=== PATIENT | female | born 1965 | race Caucasian/White ===

== ENCOUNTER 2018-02-20 21:46 | Emergency (ER) | payer BC ==
[2018-02-20 22:01] VITALS: BP 146/84
[2018-02-20] MEDS ORDERED: HYDROcodone/ACETAMIN 5-325 MG* 1 TAB PO ONE (22:01)
[2018-02-20] MEDS ORDERED: Ondansetron ODT TAB* 4 MG PO ONE (22:05)
[2018-02-20] MEDS ORDERED: Ondansetron ODT TAB* 4 MG ONE (22:06)
--- NOTE | 2018-02-20 22:06 | UC ---
Complaint Female HPI - HPI Summary HPI Summary: Complains of increased urinary frequency, increased urinary urge with mild sensation of pelvic pressure starting last night, with symptoms worsening today , AND sudden onset left flank pain while waiting here in waiting room. Prior history of kidney stones, states same presentation last time with urinary symptoms and sudden onset kidney pain. Denies fever, cough, sore throat, CP, SOB, N/V/D, abdominal pain, lower back pain, change in BM. Medical history is none. - History Of Current Complaint Stated Complaint: BURNING URINATION Time Seen by Provider: 02/20/18 21:52 Hx Obtained From: Patient Onset/Duration: Gradual Onset, Lasting Hours Timing: Constant Severity Initially: Mild Severity Currently: Severe Pain Scale Used: 0-10 Numeric Character: Sharp - Allergies/Home Medications Allergies/Adverse Reactions: Allergies Allergy/AdvReac Type Severity Reaction Status Date / Time No Known Allergies Allergy Verified 02/20/18 22:01 Home Medications: Home Medications Turkish Herbs 02/20/18 [History] Review of Systems Constitutional: Negative Skin: Negative Eyes: Negative ENT: Negative Respiratory: Negative Cardiovascular: Negative Gastrointestinal: Negative Genitourinary: Frequency, Urgency Motor: Negative Neurovascular: Negative Musculoskeletal: Negative Neurological: Negative Psychological: Negative Is Patient Immunocompromised?: No All Other Systems Reviewed And Are Negative: Yes Physical Exam Triage Information Reviewed: Yes Vital Signs Reviewed: Yes Eye Exam: Normal ENT Exam: Normal Neck exam: Normal Respiratory Exam: Normal Cardiovascular Exam: Normal Abdomen Description: Positive: Nontender, CVA Tenderness (L) Musculoskeletal Exam: Normal Neurological Exam: Normal Psychological Exam: Normal Skin Exam: Normal Complaint Female Dx - Course Course Of Treatment: Due to extremity of pain and hx, have advised patient she needs to go to the ED for better evaluation and management of her symptoms. Patient vital signs stable. patient originally wanted to have her friend drive her to the ED and was given hydrocodone 5mg by mouth for pain. Patient then decided she wanted to go by ambulance. IV access was placed and morphine 4mg IV given. transferred by ambulance to [facility] [place] ED - Differential Dx/Diagnosis Provider Diagnoses: Flank pain. Dysuria - Physician Notifications Discussed Patient Care With: Destinee Stein - gave case details to ED provider Time Discussed With Above Provider: 22:20 Discharge - Sign-Out/Discharge Documenting (check all that apply): Discharge/Admit/Transfer - Discharge Plan Condition: Stable Disposition: TRANS HIGHER LVL OF CARE FAC Referrals: Lola Sosa MD [Primary Care Provider] - - Billing Disposition and Condition Condition: STABLE Disposition: EMTALA
[2018-02-20] MEDS ORDERED: Morphine VIAL* 10 MG/ML 1 ML VIAL IV ONE (22:26)
== END 2018-02-20 22:44 | disposition short-term general hospital (02) ==
LOC: UCEAST 21:46
DX: M54.5 Low back pain (principal); R30.0 Dysuria; Z87.442 Personal history of urinary calculi
CPT/HCPCS: 99203; A9270-GY; G0463; J2270

== ENCOUNTER 2018-02-20 23:06 | Emergency (ER) | payer BC ==
[2018-02-20] MEDS ORDERED: Ketorolac INJ* 30 MG/ML 1 ML VIAL IV PUSH ONE (23:23)
[2018-02-20] MEDS ORDERED: Morphine VIAL* 4 MG/ML VIAL (1 ml vial) IV ONE (23:24)
[2018-02-20] MEDS ORDERED: NS 0.9% 1000 ML* 1,000 ML IV ONE (23:24)
[2018-02-21 00:40] LABS: ABS Basophils 0 10^3/ul (0-0.2); ABS Eosinophils 0.1 10^3/ul (0-0.6); ABS Lymphocytes 1.1 10^3/ul (1.0-4.8); ABS Monocytes 0.4 10^3/ul (0-0.8); ABS Neutrophils 7.7 10^3/ul (1.5-7.7); ABS Nucleated RBC 0 10^3/ul; Eosinophil % 0.7 % (0-6); Hematocrit 37 % (35-47); Hemoglobin 12.6 g/dl (12.0-16.0); Lymphocyte % 11.9 % (25-47); Mean Corpuscular HGB Conc 34 g/dl (31-36); Mean Corpuscular Hemoglobin 32 pg (27-31); Mean Corpuscular Volume 93 fL (80-97); Mean Platelet Volume 7.8 um3 (7.4-10.4); Nucleated Red Blood Cells % 0; Platelet Count 193 10^3/ul (150-450); Red Blood Count 3.99 10^6/ul (4.0-5.4); Red Cell Distribution Width 13 % (10.5-15); White Blood Count 9.4 10^3/ul (3.5-10.8)
[2018-02-21 00:59] LABS: EGFR Non-African American 56.1 (>60)
--- NOTE | 2018-02-21 01:32 | ED ---
GI/ HPI - HPI Summary HPI Summary: 52-year-old female presents with left-sided flank pain for the past couple hours. She admits to urgency frequency. She denies any hematuria. She states this feels similar to when she has kidney stone the past. States pain radiates from left lower quadrant. She was given some morphine en route and it seemed to help. She states she is nauseous and has been vomiting. She denies any abnormal vaginal discharge. She denies any diarrhea or constipation. She denies any fevers. She denies any chest pain or shortness of breath. She has had a prior. She has no medical conditions. - History of Current Complaint Chief Complaint: EDFlankPain Time Seen by Provider: 02/20/18 23:10 Stated Complaint: RT FLANK PAIN Hx Last Menstrual Period: 02/09/2018 Pain Intensity: 8 - Allergy/Home Medications Allergies/Adverse Reactions: Allergies Allergy/AdvReac Type Severity Reaction Status Date / Time No Known Allergies Allergy Verified 02/20/18 22:01 PMH/Surg Hx/FS Hx/Imm Hx Endocrine/Hematology History: Denies: Hx Anticoagulant Therapy Cardiovascular History: Denies: Hx Myocardial Infarction - Cancer History Hx Chemotherapy: No Hx Radiation Therapy: No - Surgical History Surgery Procedure, Year, and Place: c section Infectious Disease History: No Infectious Disease History: Denies: Traveled Outside the [place] in Last 30 Days - Family History Known Family History: Positive: Hypertension - Social History Alcohol Use: Rare Substance Use Type: Reports: None Smoking Status (MU): Never Smoked Tobacco Review of Systems Negative: Fever Negative: Chest Pain Negative: Shortness Of Breath Positive: Vomiting, Nausea. Negative: Abdominal Pain, Diarrhea Positive: flank pain All Other Systems Reviewed And Are Negative: Yes Physical Exam Triage Information Reviewed: Yes Vital Signs On Initial Exam: Initial Vitals Temp Pulse Resp BP Pulse Ox 98.2 F 69 14 120/76 99 02/20/18 23:07 02/20/18 23:07 02/20/18 23:07 02/20/18 23:07 02/20/18 23:07 Vital Signs Reviewed: Yes Appearance: Positive: Well-Appearing Skin: Positive: Warm, Dry Head/Face: Positive: Normal Head/Face Inspection Eyes: Positive: Normal, Conjunctiva Clear Respiratory/Lung Sounds: Positive: Clear to Auscultation, Breath Sounds Present Cardiovascular: Positive: Normal, RRR Abdomen Description: Positive: Soft, CVA Tenderness (L), Other: - tenderness LLQ. Negative: CVA Tenderness (R) Bowel Sounds: Positive: Present Musculoskeletal: Positive: Normal Neurological: Positive: Normal Psychiatric: Positive: Normal Diagnostics - Vital Signs Vital Signs Temp Pulse Resp BP Pulse Ox 02/21/18 00:03 20 02/20/18 23:07 98.2 F 69 14 120/76 99 - Laboratory Lab Results: Lab Results 02/21/18 02/21/18 Range/Units 00:34 00:34 WBC 9.4 (3.5-10.8) 10^3/ul RBC 3.99 L (4.0-5.4) 10^6/ul Hgb 12.6 (12.0-16.0) g/dl Hct 37 (35-47) % MCV 93 (80-97) fL MCH 32 H (27-31) pg MCHC 34 (31-36) g/dl RDW 13 (10.5-15) % Plt Count 193 (150-450) 10^3/ul MPV 7.8 (7.4-10.4) um3 Neut % (Auto) 82.4 (38-83) % Lymph % (Auto) 11.9 L (25-47) % [place] % (Auto) 4.6 (0-7) % Eos % (Auto) 0.7 (0-6) % Baso % (Auto) 0.4 (0-2) % Absolute Neuts (auto) 7.7 (1.5-7.7) 10^3/ul Absolute Lymphs (auto) 1.1 (1.0-4.8) 10^3/ul Absolute Monos (auto) 0.4 (0-0.8) 10^3/ul Absolute Eos (auto) 0.1 (0-0.6) 10^3/ul Absolute Basos (auto) 0 (0-0.2) 10^3/ul Absolute Nucleated RBC 0 10^3/ul Nucleated RBC % 0 Sodium 137 L (139-145) mmol/L Potassium 3.5 (3.5-5.0) mmol/L Chloride 104 (101-111) mmol/L Carbon Dioxide 23 (22-32) mmol/L Anion Gap 10 (2-11) mmol/L BUN 19 (6-24) mg/dL Creatinine 1.04 H (0.51-0.95) mg/dL Est GFR ( Amer) 72.1 (>60) Est GFR (Non-Af Amer) 56.1 (>60) BUN/Creatinine Ratio 18.3 (8-20) Glucose 138 H (70-100) mg/dL Calcium 8.7 (8.6-10.3) mg/dL Total Bilirubin 0.40 (0.2-1.0) mg/dL AST 17 (13-39) U/L ALT 16 (7-52) U/L Alkaline Phosphatase 37 (34-104) U/L C-Reactive Protein 1.07 (< 5.00) mg/L Total Protein 6.1 L (6.4-8.9) g/dL Albumin 3.5 (3.2-5.2) g/dL Globulin 2.6 (2-4) g/dL Albumin/Globulin Ratio 1.3 (1-3) Lipase 12 (11.0-82.0) U/L Beta HCG, Quant 1.02 mIU/mL Result Diagrams: 02/21/18 00:34 02/21/18 00:34 Lab Statement: Any lab studies that have been ordered have been reviewed, and results considered in the medical decision making process. - CT abd CT Interpretation: Positive (See Comments) - 3 mm stone at the left UVJ causing moderate hydronephrosis CT Interpretation Completed By: Marie BARRIENTOS Course/Dx - Course Course Of Treatment: 52-year-old female presents with left-sided flank pain for the past couple hours. She admits to urgency frequency. She denies any hematuria. She states this feels similar to when she has kidney stone the past. States pain radiates from left lower quadrant. She was given some morphine en route and it seemed to help. She states she is nauseous and has been vomiting. She denies any abnormal vaginal discharge. She denies any diarrhea or constipation. She denies any fevers. She denies any chest pain or shortness of breath. She has had a prior. She has no medical conditions. On exam has tenderness left flank and left lower quadrant. Laboratories within normal limits. CT shows a 3 mm stone at the UVJ. Discuss CT results patient. Urine no infection. Patient states that she had follow-up for hypodense lesion on the right liver. Will follow up with urology about kidney stone. Patient understands agrees with plan. - Diagnoses Differential Diagnoses - Female: Pyelonephritis, Urinary Tract Infection, Ureteral Calculi Provider Diagnoses: Urethral stone Discharge - Sign-Out/Discharge Documenting (check all that apply): Discharge/Admit/Transfer - Discharge Plan Condition: Good Disposition: HOME Prescriptions: Ondansetron ODT TAB* [Zofran 4 MG Odt TAB*] 4 mg PO Q6H PRN #12 tab.odt PRN Reason: Nausea oxyCODONE/Acetamin 5/325 MG* [Percocet 5/325 TAB*] 1 tab PO Q6H PRN #12 tab MDD 4 PRN Reason: Pain Tamsulosin CAP* [Flomax CAP*] 0.4 mg PO DAILY #7 cap Patient Education Materials: Ureteral Stones (ED) Referrals: Mynor Caldwell MD [Medical Doctor] - Lola Sosa MD [Primary Care Provider] - Additional Instructions: Take ibuprofen every 6 hours and narcotic as needed every 6 hours Take Zofran every 6 hours for nausea as needed Take Flomax daily starting tomorrow, first dose given in ED until stone expelled , make sure stand up slowly Follow up with urology, call office tomorrow for appointment Return to ED if unable to manage pain at home, develop fever, or any new or worsening symptoms - Billing Disposition and Condition Condition: GOOD Disposition: HOME
[2018-02-21] MEDS ORDERED: O ndansetron ODT 4MG 2TAB PRPK 4 MG PAK PO ONE (01:47)
[2018-02-21] MEDS ORDERED: Tamsulosin CAP* 0.4 MG PO ONE (01:57)
[2018-02-21 02:16] LABS: Urine Appearance Turbid; Urine Blood Negative (Negative); Urine Ketones 2+ (Negative); Urine Protein Negative (Negative); Urine Specific Gravity 1.016 (1.010-1.030); Urine Urobilinogen Negative (Negative)
[2018-02-21 02:25] LABS: Urine Color Yellow
[2018-02-21 03:04] VITALS: BP 124/79
--- NOTE | 2018-02-21 07:37 | RAD ---
CLINICAL HISTORY: Left flank pain COMPARISON: None TECHNIQUE: Noncontrast CT examination of the abdomen and pelvis from the lung bases through the initial tuberosities. FINDINGS: VISUALIZED LUNG BASES: The visualized lung bases are grossly clear. There is no pleural effusion. ABDOMEN AND PELVIS: Evaluation of the solid organs and vasculature is limited without intravenous contrast. Fluid density cysts are noted in the right lobe of the liver. The liver is otherwise homogenous in attenuation. The spleen, pancreas and adrenal glands are grossly normal in appearance. The gallbladder is normal. In the lower pole collecting system of the right kidney there is a 4 mm calcification. There is no right-sided hydronephrosis. There is moderate left-sided hydronephrosis. At the left ureterovesical junction there is a 4 mm calcification. The small and large bowel are not distended. In the right lower quadrant the appendix is identified measuring 5 mm in diameter. There is hyperattenuating material in the distal tip of the appendix but no periappendiceal inflammatory change. There is no gross retroperitoneal or mesenteric lymphadenopathy. At the right pelvis there is a 2 cm fluid density cyst which could be an ovarian follicle. The abdominal aorta and iliac arteries are normal in course and diameter. There are no sinister bone lesions. IMPRESSION: 1. At the left ureterovesical junction there is a 4 mm calcification with moderate ipsilateral hydronephrosis. 2. In the right hemipelvis there is a 2 cm fluid density structure that could be an ovarian follicle in a woman who has not undergone menopause. Please correlate to the patient's menstrual status.
== END 2018-02-21 03:00 | disposition home or self-care (01) ==
LOC: ED 23:06
DX: N20.1 Calculus of ureter (principal); R10.84 Generalized abdominal pain; R11.2 Nausea with vomiting, unspecified
CPT/HCPCS: 36415; 74176; 80053; 81003; 83690; 84702; 85025; 86140; 99284; A9270-GY; J1885; J2270

== ENCOUNTER 2018-02-23 21:26 | Observation (INO) | payer BC ==
[2018-02-23] MEDS ORDERED: NS 0.9% 1000 ML* 1,000 ML IV ONE (22:04)
[2018-02-23] MEDS ORDERED: Ketorolac INJ* 30 MG/ML 1 ML VIAL IV PUSH ONE (22:04)
[2018-02-23] MEDS ORDERED: Metoclopramide IV* 5 MG/ML 2 ML VIAL IV SLOW PU ONE (22:04)
[2018-02-23 22:41] LABS: ABS Basophils 0 10^3/ul (0-0.2); ABS Eosinophils 0.1 10^3/ul (0-0.6); ABS Lymphocytes 1.3 10^3/ul (1.0-4.8); ABS Monocytes 0.5 10^3/ul (0-0.8); ABS Neutrophils 4.7 10^3/ul (1.5-7.7); ABS Nucleated RBC 0 10^3/ul; Eosinophil % 1.9 % (0-6); Hematocrit 36 % (35-47); Hemoglobin 12.2 g/dl (12.0-16.0); Lymphocyte % 19.1 % (25-47); Mean Corpuscular HGB Conc 34 g/dl (31-36); Mean Corpuscular Hemoglobin 32 pg (27-31); Mean Corpuscular Volume 92 fL (80-97); Nucleated Red Blood Cells % 0.1; Platelet Count 172 10^3/ul (150-450); Red Blood Count 3.87 10^6/ul (4.0-5.4); Red Cell Distribution Width 13 % (10.5-15); White Blood Count 6.7 10^3/ul (3.5-10.8)
[2018-02-23 22:49] LABS: INR 0.98 (0.77-1.02)
[2018-02-23 23:27] LABS: Urine Appearance Clear; Urine Blood 3+ (Negative); Urine Color Yellow; Urine Ketones 1+ (Negative); Urine Protein Negative (Negative); Urine Specific Gravity 1.008 (1.010-1.030); Urine Urobilinogen Negative (Negative)
[2018-02-23] MEDS ORDERED: Levofloxacin 500 MG IVPREMIX(* 500 MG/100 ML BAG IVPB ONE (23:38)
[2018-02-23] MEDS ORDERED: Tamsulosin CAP* 0.4 MG PO ONE (23:49)
[2018-02-23] MEDS ORDERED: Magnesium CITRATE* 300 ML BTL PO ONE (23:56)
[2018-02-23] MEDS ORDERED: Bisacodyl SUPP* 10 MG SUPP PR ONE (23:56)
[2018-02-24] MEDS ORDERED: Docusate CAP* 100 MG PO PRN (00:19)
[2018-02-24] MEDS ORDERED: Senna TAB PO PRN (00:19)
[2018-02-24] MEDS ORDERED: Ondansetron INJ* 2 MG/ML VIAL IV PRN ×2 (00:19→07:40)
[2018-02-24] MEDS ORDERED: Morphine VIAL* 4 MG/ML VIAL (1 ml vial) IV PRN (00:19)
[2018-02-24] MEDS ORDERED: oxyCODONE/Acetamin 5/325 MG* TAB PO PRN (00:19)
[2018-02-24] MEDS ORDERED: Al Hydrox/Mg Hydrox/Simet LIQ* 30 ML UDC PO PRN (00:19)
[2018-02-24] MEDS ORDERED: PROCHLORPERAZINE INJ 5 MG/ML 2 ML VIAL IV PRN (00:36)
--- NOTE | 2018-02-24 01:13 | ED ---
Ron Anderson Rebecca, scribed for Tyson Childs MD on 02/23/18 at 2155 . HPI Febrile Illness - HPI Summary HPI Summary: Pt is a 52 y/o F who presents to ED c/o fever. Noticed fever at 2000, measured 100.3 at home. Last dose of Ibuprofen was at 2000 (400 mg). Has not been taking Tylenol. Additionally c/o mild diffuse abdominal pain, ranked 2/10, chills, and constipation. Notes intermittent episodes of N/V and L flank pain. Denies cough , dysuria, sore throat. Pt was seen by [facility] ED on (3 days ago) with a Dx of L kidney stone. Called Dr. Eastman's office tonight after noticing fever who recommended she come to the ED. - History of Current Complaint Chief Complaint: EDFever Time Seen by Provider: 02/23/18 21:38 Hx Obtained From: Patient Hx Last Menstrual Period: 02/09/2018 Onset/Duration: Still Present Time of Onset: 20:00 Temperature: 100.3 F Current Severity: Mild Pain Intensity: 2 - Diffuse abdominal pain Pain Scale Used: 0-10 Numeric Associated Signs and Symptoms: Chills - Allergy/Home Medications Allergies/Adverse Reactions: Allergies Allergy/AdvReac Type Severity Reaction Status Date / Time No Known Allergies Allergy Verified 02/23/18 21:32 PMH/Surg Hx/FS Hx/Imm Hx Endocrine/Hematology History: Reports: Other Endocrine/Hematological Disorders - Hx Eczema Musculoskeletal History: Reports: Other Musculoskeletal History - Hx Dysplasia - Cancer History Hx Chemotherapy: No Hx Radiation Therapy: No - Surgical History Surgery Procedure, Year, and Place: c section Infectious Disease History: No Infectious Disease History: Denies: Traveled Outside the [place] in Last 30 Days - Family History Known Family History: Positive: Hypertension - Social History Alcohol Use: Rare Substance Use Type: Reports: None Smoking Status (MU): Never Smoked Tobacco Review of Systems Positive: Fever, Chills Negative: Sore Throat Negative: Cough Positive: Abdominal Pain, Vomiting, Nausea Positive: pain - L flank. Negative: dysuria All Other Systems Reviewed And Are Negative: Yes Physical Exam - Summary Physical Exam Summary: VITAL SIGNS: Reviewed. GENERAL: ~Patient is a well-developed and nourished female who is lying comfortable in the stretcher. Patient is not in any acute respiratory distress. HEAD AND FACE: No signs of trauma. No ecchymosis, hematomas or skull depressions. No sinus tenderness. EYES: PERRLA, EOMI x 2, No injected conjunctiva, no nystagmus. EARS: Hearing grossly intact. Ear canals and tympanic membranes are within normal limits. MOUTH: Oropharynx within normal limits. NECK: Supple, trachea is midline, no adenopathy, no JVD, no carotid bruit, no c- spine tenderness, neck with full ROM. CHEST: Symmetric, no tenderness at palpation LUNGS: Clear to auscultation bilaterally. No wheezing or crackles. CVS: Regular rate and rhythm, S1 and S2 present, no murmurs or gallops appreciated. ABDOMEN: Soft, LLQ tenderness. No signs of distention. No rebound no guarding, and no masses palpated. Bowel sounds are normal. EXTREMITIES: FROM in all major joints, no edema, no cyanosis or clubbing. Left CVA tenderness. NEURO: Alert and oriented x 3. No acute neurological deficits. Speech is normal and follows commands. SKIN: Dry and warm Triage Information Reviewed: Yes Vital Signs On Initial Exam: Initial Vitals Temp Pulse Resp BP Pulse Ox 98.5 F 75 18 127/71 99 02/23/18 21:28 02/23/18 21:28 02/23/18 21:28 02/23/18 21:28 02/23/18 21:28 Vital Signs Reviewed: Yes Diagnostics - Vital Signs Vital Signs Temp Pulse Resp BP Pulse Ox 02/23/18 21:28 98.5 F 75 18 127/71 99 - Laboratory Result Diagrams: 02/23/18 22:32 02/23/18 22:32 Lab Statement: Any lab studies that have been ordered have been reviewed, and results considered in the medical decision making process. - Radiology CXR Xray Interpretation: No Acute Changes - No acute process. Pending official report. Radiology Interpretation Completed By: ED Physician - CT CT Abd/Pel CT Interpretation Completed By: Radiologist - No change in mild to moderate left hydronephrosis secondary to a 2 mm left UVJ stone which is unchanged in position. Decreasing perinephric edema. No change 4.9 x 2.4 cm lobulated right ovary cyst, although hydrosalpinx is possible. Consider pelvic ultrasound for evaluation. Minimal pericardial effusion. ED physixian reviewed this radiology report. Pending official report. Re-Evaluation - Re-Evaluation First Eval Re-Evaluation Time: 23:52 Comment: Discussed admission plan and conversation with Dr. Eastman. Course/Dx - Course Assessment/Plan: Pt is a 52 y/o F who presents to ED c/o fever since 1999, measured 100.3 at home. Last dose of Ibuprofen was at 1999 (400 mg). Has not been taking Tylenol. Additionally c/o mild diffuse abdominal pain, ranked 2/10, chills, and constipation. Notes intermittent episodes of N/V and L flank pain. Denies cough, dysuria, sore throat. Pt was seen by [facility] ED on (3 days ago) with a Dx of L kidney stone. Called Dr. Eastman's office tonight after noticing fever who recommended she come to the ED. Bloodwork and UA were done. CXR reveals no acute findings. CT Abd/Pel findings above. In the ED course, pt received Toradol, Levaquin, Reglan, Flomax, and fluids. Discussed care of pt with Dr. Eastman who recommended admission to hospitalist services and he will see her in the morning. Discussed care of pt with Dr. Mary Ann Forrest at 2355 who accepts pt for admission. Pt will be admitted with Dx of UTI, left ureteral stone and constipation. She understands and agrees. - Diagnoses Provider Diagnoses: UTI (urinary tract infection), Left ureteral stone, Constipation - Provider Notifications Discussed Care Of Patient With: Jose E Eastman Time Discussed With Above Provider: 23:46 Instructed by Provider To: Other - Recommended admission to hospitalist services and he will see her in the morning. Discussed care of pt with Dr. Mary Ann Forrest at 2355 who accepts pt for admission. Discharge - Sign-Out/Discharge Documenting (check all that apply): Discharge/Admit/Transfer - Admit - Discharge Plan Condition: Stable Disposition: ADMITTED TO [facility] Referrals: Lola Sosa MD [Primary Care Provider] - The documentation as recorded by the Ron yanes Rebecca accurately reflects the service I personally performed and the decisions made by me, Tyson Childs MD.
--- NOTE | 2018-02-24 04:41 | HP ---
HISTORY AND PHYSICAL: DATE OF ADMISSION: 02/24/18 Time of evaluation: 00:00 CHIEF COMPLAINT: Fever and flank pain. HISTORY OF PRESENT ILLNESS: This is a 52-year-old female with past medical history of nephrolithiasis. She began having left flank pain on 02/20/18. She went to urgent care, they sent her to the emergency room. At that time, she was diagnosed with a left 4-mm stone. She was sent home from the emergency room with Flomax, Percocet, Zofran and to follow up with Urology. She states the pain never really improved. She had been taking ibuprofen around the clock. Last night she woke up several times requiring ibuprofen. She was also noted to have night sweats this evening. She noted to have a temperature of 100.3. She called Dr. Eastman and there was concern for sepsis. So he recommended she come to the emergency room for further evaluation. She states she was initially having nausea and vomiting, but has not had any vomiting since 02/21/18. She has been having some issues with constipation. She has not taken the Percocet, Zofran and Flomax, not able to get to the pharmacy, to get the Flomax and Percocet makes her sick and Zofran did not seem to work. She denies any URI symptoms. No chest pain, no shortness of breath. She has no dysuria. Her complaint is suprapubic discomfort and left lower flank pain, otherwise review of systems is negative. In the emergency room, the patient had labs, imaging. She was given Flomax 0.4 mg, a liter of fluid, Reglan 10 mg and mag citrate, Levaquin 500 mg, Toradol and a suppository and was referred to the hospitalist service for further evaluation. PAST MEDICAL HISTORY: History of nephrolithiasis seen by Urology's office in the past. MEDICATIONS: 1. Multivitamin. 2. Ashley as needed. 3. Peruvian herbal medicines. ALLERGIES: No known drug allergies. FAMILY HISTORY: Both her parents are alive with COPD, they are both smokers. SOCIAL HISTORY: The patient lives at home alone. She denies any tobacco use or alcohol use. No illicit drug use. 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 Healthcare proxy is Ivone Pimentel. REVIEW OF SYSTEMS: A 14-point review of systems as mentioned in the HPI, otherwise negative. PHYSICAL EXAMINATION GENERAL: No acute distress, resting comfortably. VITAL SIGNS: Temp 98.5, pulse rate 82, respiratory rate 18, oxygen saturation 100% on room air, and blood pressure 117/64. HEENT: Head: Normocephalic. Pupils equal and reactive. Oropharynx: Mucous membranes are moist. NECK: Supple. No lymphadenopathy. No nuchal rigidity. RESPIRATORY: Clear to auscultation. No wheezing, rhonchi or rales. CARDIAC: Regular rate and rhythm. No rubs, murmurs or gallops. ABDOMEN: Positive bowel sounds. Soft, some suprapubic discomfort, no rebound or guarding. She does have left lower flank tenderness. EXTREMITIES: No clubbing or cyanosis. +2 DPs. NEUROLOGIC: Alert and oriented x3. No gross focal neurologic deficits LABORATORY DATA: White count 6.7, hemoglobin 12.2, hematocrit 36, platelets 172, INR is 0.9. Sodium 138, potassium 3.5, chloride 105, bicarb 26, BUN 11, creatinine 0.95, glucose 111, CRP of 71, lactic acid 0.7. UA shows positive ketones, +3 blood, leukocytes, white cells, red cells, squamous cells present. Imaging: Radiographic data, abdominal and pelvis CT, no change and mild to moderate left hydronephrosis secondary to a 2 mm left UVJ stone which is unchanged in position, decrease in perinephric edema, no change to 4.9 x 2.4 lobulated right ovary cyst, although hydrosalpinx is possible, consider pelvic ultrasound on evaluation, minimal pericardial effusion. Chest x-ray, wet read unremarkable. IMPRESSION: This is a 52-year-old female with past medical history of nephrolithiasis who was diagnosed with nephrolithiasis a few days ago returns to the emergency room with pain and now with fever. 1. Nephrolithiasis and fever. Assessment: The patient has been taking ibuprofen around the clock but she does not have a white count and vitals do not indicate signs of sepsis. She could have a urinary tract infection as a result of her kidney stone that is unchanged in size or location with some mild to moderate hydronephrosis. The other etiology behind her pain could be this right ovarian cyst. Dr. Eastman was notified and is planning is to take to the OR in the morning for stent placement. Plan: we will admit her for observation to short stay. We will continue on IV fluids. We will continue on antibiotics. We will start her on cefepime. Continue pain control and will continue to strain her urine and contact Urology if she does pass the stone. If she continues to have pain by passing the stone , would recommend further workup for this right ovarian cyst. Continue on Flomax and antiemetics. 2. Constipation. Continue on a bowel regimen of senna and Colace for now. 3. Fluids, electrolytes and nutrition: The patient is n.p.o. for the procedure. She has IV fluids ordered. 4. Deep venous thrombosis prophylaxis. The patient's score is low risk. Will place her on SCDs. 5. Code status: Full code. TIME SPENT: Greater than 45 minutes spent doing the history and physical, more than half the time was spent in direct patient contact. [id number]/CPS #: [id number] SAMUEL
[2018-02-24] MEDS ORDERED: Iohexol 180 (CONTRAST) 10 ML SDV IV ONE (06:12)
[2018-02-24] MEDS ORDERED: Propofol* 10 MG/ML 20 ML BTL IV PUSH ONE (06:48)
[2018-02-24] MEDS ORDERED: fentaNYL* 50 MCG/ML 2 ML VIAL (100 MCG VIAL) ONE (06:48)
[2018-02-24] MEDS ORDERED: Lidocaine 2% PF * 5 ML VIAL ONE (06:49)
--- NOTE | 2018-02-24 07:27 | RAD ---
INDICATION: Fever. COMPARISON: There are no prior studies available for comparison. TECHNIQUE: A portable view of the chest was obtained. FINDINGS: Cardiac and mediastinal contours appear to be within normal limits. The lungs are clear. No pleural effusion is seen. IMPRESSION: NO EVIDENCE FOR ACUTE DISEASE.
[2018-02-24] MEDS ORDERED: Naloxone* 0.4 MG/ML 1 ML VIAL IV PRN (07:40)
[2018-02-24] MEDS ORDERED: fentaNYL* 50 MCG/ML 2 ML VIAL (100 MCG VIAL) IV PRN (07:40)
--- NOTE | 2018-02-24 07:53 | RAD ---
INDICATION: Left flank abdominal pain. COMPARISON: Comparison is made with prior CTs of the abdomen and pelvis from June 08, 2008 and February 21, 2018. TECHNIQUE: A CT scan of the abdomen and pelvis was performed without intravenous or oral contrast. Contiguous axial sections were obtained from the lung bases through the symphysis pubis. Images were reconstructed in the coronal and sagittal planes. FINDINGS: The lung bases are clear. No pleural effusion is present. There is a small pericardial effusion which is unchanged. The liver and spleen are normal in size. There is an oval-shaped fluid density lesion in the medial segment of the left hepatic lobe measuring 2.0 x 1.2 cm in size which is unchanged from prior studies most consistent with a cyst. No calcified gallstones are seen. The pancreas appears to be within normal limits. The adrenal glands appear to be within normal limits. There is a 5 mm calculus in the midportion of the right kidney. The left kidney is enlarged. No left renal calculi are seen. There is moderate dilatation of the renal calyces, pelvis and ureter to the level of a calculus at the ureterovesical junction measuring 0.3 cm in size which is unchanged . There has been interval decrease in the perinephric stranding noted on the prior study. The aorta is normal in caliber without significant calcific plaque. No significant enlarged retroperitoneal lymph nodes are seen. The stomach, small and large bowel appear nondistended. The appendix is within normal limits. There is a moderate amount retained stool mainly within the ascending and transverse colon. There is no evidence for diverticulitis or colitis. The uterus is anteverted and normal in size. There are 2 cysts in the right adnexal region most consistent with ovarian cyst measuring 2.0 x 1.8 and 2.8 x 2.3 cm in size which are unchanged significant from the prior exam. There is a small amount of adjacent free intraperitoneal fluid in the right adnexal region which is new. No free intraperitoneal air is seen. No significant focal osseous abnormality is seen. IMPRESSION: 1. 3 MM CALCULUS AT THE LEFT URETEROVESICAL JUNCTION CAUSING MODERATE HYDRONEPHROSIS, UNCHANGED. 2. NONOBSTRUCTING RIGHT RENAL CALCULUS. 3. RIGHT OVARIAN CYSTS MEASURING UP TO 2.8 CM IN SIZE. RECOMMEND A FOLLOW-UP PELVIC ULTRASOUND FOR FURTHER EVALUATION. 4. SMALL PERICARDIAL EFFUSION, UNCHANGED.
--- NOTE | 2018-02-24 08:20 | RAD ---
INDICATION: Left ureteral stone COMPARISON: None FINDINGS: 6 seconds of fluoroscopy were provided for the urology department. Fluoroscopic spot imaging of the abdomen were obtained for operative control and show left ureteral stent placement . CPT II Codes: G9500 (fluoro time doc)
[2018-02-24] MEDS ORDERED: Cefepime 1 GM in Dextrose(*) 1 GM/50 ML BAG IV SCH (09:00)
[2018-02-24 12:15] VITALS: BP 115/58
--- NOTE | 2018-02-24 13:42 | OP ---
OPERATIVE REPORT: DATE OF OPERATION: 02/24/18 DATE OF : 69 SURGEON: Jose E Eastman MD ANESTHESIOLOGIST: Guerrero Cordoba DO ANESTHESIA: General. PRE-OP DIAGNOSES: 1. Distal left ureteral calculus. 2. Left renal colic due to above. 3. Possible urinary tract infection. POST-OP DIAGNOSIS: 1. Distal left ureteral calculus. 2. Left renal colic due to above. 3. Possible urinary tract infection. OPERATIVE PROCEDURE: 1. Cystoscopy. 2. Left uteroscopy and extraction of distal left ureteral calculus (3 mm). 3. Left retrograde pyelography and placement of left ureteral stent (6-Burmese). INDICATIONS FOR PROCEDURE: Ms. Sanders is a 52-year-old white female who has past history of renal calculus disease, and who presented [facility] and then to the emergency room 3 days ago because of symptoms of left renal colic. Noncontrast CT of the abdomen and pelvis showed a 3 to 4 mm calculus at the left ureterovesical junction. Her urinalysis was negative for infection. She was sent home on pain medications. She presented to the emergency room yesterday evening because of on and off fever of 101 and recurrent left flank pain. In the emergency room, she was worked up, had a repeat CT which showed a 2 to 3 mm calculus at the left UVJ, mild left hydronephrosis, but no other abnormalities. Her CBC showed a normal white count and differential. Her C-reactive protein was elevated. Her vital signs were normal. She was afebrile and did not have tachycardia. Urinalysis was positive for esterase and blood, negative for nitrite. After urine culture , the patient was placed on Levaquin and was admitted for observation and hydration. She has been doing fine during the night and she remained afebrile. She did not pass her stone. Because of the above history and persistent symptoms, although the stone is likely to pass spontaneously, considering the concern about the possible urinary infection, the patient was taken to the operating room for the above procedure. PATHOLOGY AT CYSTOSCOPY: The bladder mucosa looked normal. There were no changes of cystitis. The ureteral orifices looked normal. Following placement of the guidewire in the Left ureter, concentrated but otherwise clear, non cloudy urine was noted from the left orifice. Because of the above and the fact that the patient does not show any signs of infection, it was decided to proceed with left ureteroscopy. Upon left ureteroscopy, a 2 to 3 calculus that had the gross appearance of a calcium oxylate stone was noted in the intramural portion of the ureter. Concentrated, but not cloudy urine was noted from the left kidney. Retrograde pyelography showed mild hydronephrosis. DESCRIPTION OF PROCEDURE: After successful general anesthesia with the patient in the lithotomy position and after proper scrubbing and draping, cystoscopy was performed. The bladder was carefully inspected and the above findings were noted. A flexible tip guidewire was then introduced into the left ureteral orifice and positioned in the area of the renal pelvis. There was a concentrated urine efflux noted from the left orifice around the guidewire, but it did not look cloudy. Decision was made to proceed with ureteroscopy. A size 6.5 semi-rigid ureteroscope was introduced inside the bladder. A flexible tip basket was introduced through the port of the ureteroscope and its flexible tip was introduced inside the left ureter alongside the guidewire. That allowed the atraumatic introduction of the ureteroscope inside the left ureter. Irrigation was kept to a minimum. The ureteroscope was introduced without difficulty into the distal ureter. The calculus was identified. It was engaged in the basket and pulled out intact and sent for stone analysis. Retrograde pyelography was then performed. A 6-Burmese stent was then placed with the proximal end coiling in the renal pelvis and the distal end coiling inside the bladder. There was prompt drainage of contrast from the kidney and no extravasation. The patient tolerated the procedure well and left the operating room in good condition. The plan is to observe the patient in the hospital for the next several hours. If she remains afebrile and pain free, she will be discharged home on Bactrim, pending the result of the urine culture. She will be seen in the office next week for stent removal. [id number]/[facility] #: [id number] SAMUEL
[2018-02-24] MEDS ORDERED: Tamsulosin CAP* 0.4 MG PO SCH (21:00)
--- NOTE | 2018-03-04 09:03 | DS ---
DISCHARGE SUMMARY: DATE OF ADMISSION: 02/23/18 DATE OF DISCHARGE: 02/24/18 FINAL DIAGNOSIS: Left ureteral calculus. OPERATION: 1. Cystoscopy. 2. Left ureteroscopy and extraction of distal left ureteral calculus (3 mm). 3. Left retrograde pyelography and placement of left ureteral stent (6 Portuguese). HISTORY: Ms. Sanders is a 52-year-old white female, who presented to the urgent care center 3 days prio r to this admission with symptoms of left renal colic, and was noted on noncontrast CT of the abdomen and pelvis to have a 3- to 4-mm calculus in the distal left ureter associated with mild hydronephros is. Her CBC was normal and she was afebrile and her urinalysis showed no infection. The patient was sent home on oral pain medication and on tamsulosin. She presented back to the [facility] ency room 3 days later with low-grade fever and recurrent flank pain and voiding symptoms. In the emergency room, she had a noncontrast CT of the abdomen and pelvis, which showed a 3-mm calcul us in the distal left ureter associated with mild hydronephrosis. Her lab work showed a white count of 6700, chemistries showed a serum creatinine of 0.94. Her C-reactive protein was elevated at 71. Her lactic acid was minimally elevated at 0.7. Her physical exam showed her to be comfortable and her vital signs were normal, in particular, she wa s afebrile. COURSE IN HOSPITAL: Because of the severity of the pain, she was admitted overnight and started on I V antibiotics and IV Levaquin. She was taken to the operating room the following morning, where she underwent an uncomplicated left ureteroscopy, extraction of a distal left ureteral calculus with plac ement of the left ureteral stent. The patient did very well postoperatively and was discharged home. The plan is to see her back in an other week in the office for stent removal. [id number]/[facility] #: [id number]
== END 2018-02-24 14:30 | disposition home or self-care (01) ==
LOC: ED 21:26 → SSU 02-24 00:19
PROVIDERS: ADMIT Pediatrics; ATTEND Urology
PROC: BT1FZZZ Fluoroscopy of Left Kidney, Ureter and Bladder (ICD-10-PCS; 2018-02-24)
PROC: 0T778DZ Dilation of Left Ureter with Intraluminal Device, Via Natural or Artificial Opening Endoscopic (ICD-10-PCS; principal; 2018-02-24 06:30)
DX: N13.2 Hydronephrosis with renal and ureteral calculous obstruction (principal); K59.00 Constipation, unspecified; R10.9 Unspecified abdominal pain
CPT/HCPCS: 36415; 71045; 74176; 74420; 80053; 81003; 81015; 82365; 83605; 84702; 85025; 85610; 85730; 86140; 87040; 87086; 88300; 96374; 96375; 99285; A9270-GY; C1876; G0378; J0692; J1885; J1956; J2704; J2765; J3010